=== PATIENT | male | born 1965 | race Caucasian/White ===

== ENCOUNTER 2017-04-06 15:56 | Emergency (ER) | payer OTHER ==
[~2017-04-06 15:56] MED LIST: DARVOCET-N 1001 TAB PO; DICYCLOMINE HCL20 MG PO; LOMOTIL TABLET1 TAB PO
[2017-04-06] MEDS ORDERED: LISINOPRIL (16:24)
== END 2017-04-06 19:38 | disposition home or self-care (01) ==
LOC: SED 15:56
DX: T52.0X1A Toxic effect of petroleum products, accidental (unintentional), initial encounter (principal); T26.62XA Corrosion of cornea and conjunctival sac, left eye, initial encounter; T26.61XA Corrosion of cornea and conjunctival sac, right eye, initial encounter; F17.210 Nicotine dependence, cigarettes, uncomplicated; Z23 Encounter for immunization; Z88.5 Allergy status to narcotic agent; Y92.009 Unspecified place in unspecified non-institutional (private) residence as the place of occurrence of the external cause
CPT/HCPCS: 90471; 90715; 99283